=== PATIENT | female | born 1940 | race Two or more races ===

== ENCOUNTER 2022-10-25 00:40 | Emergency (ER) | payer OTHER ==
[~2022-10-25] VITALS: Ht 147.3 cm; Wt 68.1 kg
[2022-10-25 01:17] VITALS: BP 184/79
[2022-10-25 02:13] LABS: Basophils # (auto) 0.1 10 ^3/uL (0-0.2); Eosinophils # (auto) 0.3 10 ^3/uL (0-0.8); Eosinophils % (auto) 3.5 % (0.0-7.0); Lymphocytes # (auto) 2.5 10 ^3/uL (0.4-5.4); Monocytes # (auto) 0.8 10 ^3/uL (0-1.3); Neutrophils # (auto) 4.1 10 ^3/uL (1.6-8.6)
[2022-10-25 02:16] LABS: Basophils % (auto) 1.2 % (0.0-2.0); Lymphocytes % (auto) 31.8 % (10.0-50.0); Mean Corpuscular Hemoglobin 25.8 pg (28.0-32.0); Mean Corpuscular Hgb Conc. 32.4 g/dL (32.0-36.0); Mean Corpuscular Volume 79.6 fL (80.0-100.0); Monocytes % (auto) 10.7 % (0.0-12.0); Neutrophils % (auto) 52.8 % (37.0-80.0); Red Blood Cells 4.27 10^6/uL (4.0-5.20); Red Cell Distribution Width 15.6 % (11.8-14.3); White Blood Cell 7.8 10^3/uL (4.4-10.8)
[2022-10-25 02:22] LABS: Albumin 3.5 g/dL (3.4-5.0); BUN/Creatinine Ratio 18.8 (10.0-20.0); Calcium 8.6 mg/dL (8.5-10.1); Magnesium 2.2 mg/dL (1.6-2.6); Potassium 3.6 mmol/L (3.5-5.1)
[2022-10-25 02:25] LABS: Bilirubin, Total 0.3 mg/dL (0.2-1.0); Total Protein 7.4 g/dL (6.4-8.2)
[2022-10-25 02:27] LABS: INR 1.05 (0.9-1.15)
== END 2022-10-25 05:21 | disposition left against medical advice (07) ==
LOC: ER 00:40
DX: R07.89 Other chest pain (principal); F41.9 Anxiety disorder, unspecified; Z88.5 Allergy status to narcotic agent
CPT/HCPCS: 36415; 71045; 80053; 83735; 83880; 84484; 85025; 85610; 85730; 93005